=== PATIENT | male | born 1970 | race African-American/Black ===

== ENCOUNTER 2023-10-10 12:26 | Emergency (ER) | payer MEDICAID ==
[~2023-10-10] VITALS: Ht 165.1 cm; Wt 59.0 kg
[2023-10-10] MEDS ORDERED: FLUC100 PO (13:29)
[2023-10-10] MEDS ORDERED: Fluconazole 100 MG Tab PO ONE (13:30)
== END 2023-10-10 13:51 | disposition home or self-care (01) ==
LOC: ER 12:26
DX: B37.0 Candidal stomatitis (principal); B20 Human immunodeficiency virus [HIV] disease; Z79.899 Other long term (current) drug therapy; F17.200 Nicotine dependence, unspecified, uncomplicated
CPT/HCPCS: 99282; A9270

== ENCOUNTER 2024-02-03 19:48 | Emergency (ER) | payer MEDICAID ==
[~2024-02-03] VITALS: Ht 167.6 cm; Wt 45.4 kg
[~2024-02-03 19:48] MED LIST: Diflucan100 MG PO; FLUC100 PO; Voltaren100 GM TOP
[2024-02-03 20:45] LABS: BASOPHILS ABSOLUTE AUTO 0.01 K/mm3 (0.00-0.23); BASOPHILS PERCENT AUTO 0 % (0-2); EOSINOPHILS ABSOLUTE AUTO 0.12 K/mm3 (0.00-0.68); EOSINOPHILS PERCENT AUTO 4 % (0-6); Hematocrit 25.7 % (37.0-53.0); Hemoglobin 8.5 g/dL (13.5-17.5); IMMATURE GRAN ABSOLUTE AUTO 0.03 K/mm3 (0.00-0.10); IMMATURE GRAN PERCENT AUTO 1 % (0-1); LYMPHOCYTES PERCENT AUTO 18 % (21-46); MONOCYTES ABSOLUTE AUTO 0.44 K/mm3 (0.16-1.47); MONOCYTES PERCENT AUTO 13 % (4-13); Mean Corpuscular HGB 26.6 pg (26.0-34.0); Mean Corpuscular HGB Conc 33.1 g/dL (31.5-36.5); Mean Corpuscular Volume 80 fL (80-100); NEUTROPHILS ABSOLUTE AUTO 2.13 K/mm3 (1.96-9.15); NEUTROPHILS PERCENT AUTO 64 % (41-73); Platelet Count 203 K/mm3 (150-400); RDW Coefficient Variation 17.8 % (11.7-14.2); RDW Standard Deviation 51.6 fL (35.1-46.3); White Blood Cell Count 3.33 K/mm3 (4.00-11.30)
[2024-02-03 21:10] LABS: Albumin, Blood 2.7 g/dL (3.4-5.0); Albumin/Globulin Ratio 0.5 (0.8-1.8); Bilirubin, Total 0.6 mg/dL (0.1-1.0); Bun/Creatinine Ratio 13.7 (12.0-20.0); Calcium, Blood 8.4 mg/dL (8.5-10.1); Creatinine, Blood 1.17 mg/dL (0.60-1.20); Globulin, Blood 5.9 g/dL (2.2-4.0); Potassium, Blood 3.9 mmol/L (3.5-5.5); Total Protein, Blood 8.6 g/dL (6.4-8.2)
== END 2024-02-03 22:56 | disposition left against medical advice (07) ==
LOC: ER 19:48
PROVIDERS: Emergency Medicine
DX: Z21 Asymptomatic human immunodeficiency virus [HIV] infection status (principal); Z91.199 Patient's noncompliance with other medical treatment and regimen due to unspecified reason; Z53.29 Procedure and treatment not carried out because of patient's decision for other reasons
CPT/HCPCS: 36415; 80053; 85025; 93005; 93010; 99283-25